=== PATIENT | male | born 1965 | race Two or more races ===

== ENCOUNTER → 2021-05-16 | Outpatient (CLI) | payer OTHER ==
[2021-04-25 15:00] VITALS: BP 154/72
[~2021-05-16] MED LIST: ASPI-886 PO; ASPI325T8 PO; ATOR40TA59 PO; CARV6.2511 PO; CLOP75TA PO; ISOS30TA68 PO; LISI5TAB15 PO; NITR0.4T24 SL
--- NOTE | 2021-05-16 14:44 | CARD ---
MR#: [id number] Date of Study: 05/16/2021 Ordering Physician: CHELE BROWN, Referring Physician: CHELE BROWN, Tech: Luli Lane [facility] APPROVED REPORT EXAM: Two-dimensional and M-mode echocardiogram with Doppler and color Doppler. Other Information Quality : AverageHR: 60bpm Rhythm : NSR INDICATION Chest Pain RISK FACTORS Hypertension Obesity 2D DIMENSIONS RVDd3.0 (2.9-3.5cm)Left Atrium(2D)3.8 (1.6-4.0cm) IVSd1.2 (0.7-1.1cm)Aortic Root(2D)2.8 (2.0-3.7cm) LVDd4.4 (3.9-5.9cm)LVOT Diameter2.2 (1.8-2.4cm) PWd1.2 (0.7-1.1cm)LVDs2.6 (2.5-4.0cm) FS (%) 40.8 %SV61.9 ml LVEF(%)71.8 (>50%) Aortic Valve AoV Peak Eugenio.113.8cm/sAoV VTI24.2cm AO Peak GR.5.2mmHgLVOT Peak Eugenio.105.8cm/s AO Mean GR.3mmHgAVA (VMAX)3.59cm2 Mitral Valve MV E Nvwmpiam19.6cm/sMV DECEL SPWV732ir MV A Tbsipohy62.6cm/sE/A Ratio1.1 Pulmonary Valve PV Peak Tugmkmjs915.2cm/s Tricuspid Valve TR P. Odbgmhxs577qu/sTR Peak Gr.21mmHg LEFT VENTRICLE The left ventricle is normal size. There is mild concentric left ventricular hypertrophy. The left ve ntricular systolic function is normal and the ejection fraction is within normal range. Estimated eje ction fraction 55% Mid to distal septum is akinetic. Otherwise, grossly normal wall motion. Transmitr al Doppler flow pattern is Grade I-abnormal relaxation pattern. RIGHT VENTRICLE The right ventricle is normal size. There is normal right ventricular wall thickness. The right ventr icular systolic function is normal. ATRIA The left atrium size is normal. The right atrium size is normal. The interatrial septum is intact wit h no evidence for an atrial septal defect or patent foramen ovale as noted on 2-D or Doppler imaging. AORTIC VALVE The aortic valve is normal in structure and function. Doppler and Color Flow revealed trace aortic re gurgitation. There is no significant aortic valvular stenosis. MITRAL VALVE The mitral valve is normal in structure and function. There is no evidence of mitral valve prolapse. There is no mitral valve stenosis. Doppler and Color-flow revealed trace to mild mitral regurgitation . TRICUSPID VALVE The tricuspid valve is normal in structure and function. Doppler and Color Flow revealed mild tricusp id regurgitation. Estimated PAP 25 mmHg/ There is no tricuspid valve stenosis. PULMONIC VALVE Doppler and Color Flow revealed mild pulmonic valvular regurgitation. There is no pulmonic valvular s tenosis. GREAT VESSELS The aortic root is normal in size. The ascending aorta is normal in size. The IVC is normal in size a nd collapses >50% with inspiration. PERICARDIAL EFFUSION There is no evidence of significant pericardial effusion. Critical Notification Critical Value: No <Conclusion> The left ventricular systolic function is normal and the ejection fraction is within normal range. E stimated ejection fraction 55% Mid to distal septum is akinetic. Otherwise, grossly normal wall motion. Signed by : Chele Brown, Electronically Approved : 05/16/2021 14:44:17
== END ==
LOC: ECHO 07:21
PROVIDERS: ATTEND Internal Medicine Cardiovascular Disease
DX: I08.8 Other rheumatic multiple valve diseases (principal); I25.10 Atherosclerotic heart disease of native coronary artery without angina pectoris
CPT/HCPCS: 93306; C8929